=== PATIENT | female | born 1950 | race Caucasian/White ===

== ENCOUNTER 2020-08-04 09:19 | Emergency (ER) | payer MEDICARE ==
[2020-08-04] MEDS ORDERED: PREDNISONE50 MG PO (10:02)
[2020-08-04 10:27] VITALS: BP 151/74
== END 2020-08-04 10:28 | disposition home or self-care (01) ==
LOC: ED 09:19
DX: L50.0 Allergic urticaria (principal)

== ENCOUNTER → 2022-09-19 | Emergency (ER) | payer MEDICARE ==
[~2022-09-19] MED LIST: CEPHALEXIN500 M1 PO; PREDNISONE50 MG PO
[2022-09-19 18:40] VITALS: BP 132/44
== END | disposition home or self-care (01) ==
LOC: ED 16:10
PROC: 0HQLXZZ Repair Left Lower Leg Skin, External Approach (ICD-10-PCS; principal; 2022-09-19)
DX: S81.812A Laceration without foreign body, left lower leg, initial encounter (principal); W25.XXXA Contact with sharp glass, initial encounter; Y93.89 Activity, other specified

== ENCOUNTER 2022-09-26 07:57 | Emergency (ER) | payer MEDICARE ==
[~2022-09-26] VITALS: Ht 157.5 cm; Wt 59.0 kg
[2022-09-26 08:17] VITALS: BP 125/66
== END 2022-09-26 08:22 | disposition home or self-care (01) ==
LOC: ED 07:57
DX: S81.812D Laceration without foreign body, left lower leg, subsequent encounter (principal); X58.XXXD Exposure to other specified factors, subsequent encounter